=== PATIENT | female | born 1945 | race Caucasian/White ===

== ENCOUNTER → 2017-08-24 | Outpatient (CLI) | payer OTHER ==
[~2017-08-24] MED LIST: CITA40TA5 PO; CYCL-259 PO; DIAZ5TAB4 PO; FENTANYL PF 100 MCG/2ML ONE; FLUMAZENIL 0.1 MG/1 ML, 5ML ONE; GADOBUTROL 7.5 MMOL/7.5 ML PFS ONE; LEVO50TA5 PO; LISI-170 PO; MIDAZOLAM 1 MG/ML, 5ML ONE; OXYC5CAP2 PO; SIMV40TA3 PO; TRAZ50TA18 PO
== END | disposition home or self-care (01) ==
LOC: RAD 09:53
PROVIDERS: ATTEND Family Medicine
DX: M47.812 Spondylosis without myelopathy or radiculopathy, cervical region (principal)
CPT/HCPCS: 72050; 72156; 99156; 99157; A9585; J2250; J3010

== ENCOUNTER 2018-01-08 15:32 | Emergency (ER) | payer OTHER ==
[~2018-01-08] VITALS: Ht 162.6 cm; Wt 50.0 kg
[~2018-01-08 15:32] MED LIST changes: -FENTANYL PF 100 MCG/2ML ONE; -FLUMAZENIL 0.1 MG/1 ML, 5ML ONE; -GADOBUTROL 7.5 MMOL/7.5 ML PFS ONE; -MIDAZOLAM 1 MG/ML, 5ML ONE; +TRAZ-136 PO; -TRAZ50TA18 PO
[2018-01-08] MEDS ORDERED: ONDANSETRON 2MG/ML, 2ML ONE (17:28)
[2018-01-08] MEDS ORDERED: ONDANSETRON 2MG/ML, 2ML IVPush ONE (17:30)
[2018-01-08] MEDS ORDERED: SODIUM CHLORIDE 0.9% 1,000ML IVBOLUS ONE (17:30)
[2018-01-08] MEDS ORDERED: SODIUM CHLORIDE FLUSH 10ML SYR IVF ONE (17:30)
[2018-01-08 17:44] LABS: BASOPHILS # (AUTO) 0.02 x10^3/uL (0-0.1); BASOPHILS % (AUTO) 0 % (0-1); EOSINOPHILS # (AUTO) 0.19 x10^3/uL (0-0.4); EOSINOPHILS % (AUTO) 3 % (1-7); LYMPHOCYTES # (AUTO) 2.75 x10^3/uL (1-3.4); LYMPHOCYTES % (AUTO) 50 % (22-44); MD NO; MEAN CORPUSCULAR HGB CONC 32.9 g/dL (32.4-35.8); MEAN CORPUSCULAR VOLUME 97.2 fL (80-100); MEAN PLATELET VOLUME 7.9 fL (7.4-10.4); MONOCYTES # (AUTO) 0.42 x10^3/uL (0.2-0.8); MONOCYTES % (AUTO) 8 % (2-9); NEUTROPHILS # (AUTO) 2.17 x10^3/uL (1.8-6.8); NEUTROPHILS % (AUTO) 39 % (42-75); PLATELET COUNT 217 x10^3/uL (130-400); RED BLOOD COUNT 4.06 x10^6/uL (3.82-5.3); RED CELL DISTRIBUTION WIDTH 15.3 % (9.6-15.2)
[2018-01-08 17:55] LABS: ALANINE AMINOTRANSFERASE 13 U/L (12-78); ALBUMIN 3.4 g/dL (3.4-5.0); ANION GAP 4 mmol/L (5-15); CHLORIDE 108 mmol/L (98-107); CREATININE 1.22 mg/dL (0.55-1.02)
[2018-01-08 17:59] LABS: ALKALINE PHOSPHATASE 70 U/L (45-117); BILIRUBIN,TOTAL 0.3 mg/dL (0.2-1.0); TOTAL PROTEIN 7.1 g/dL (6.4-8.2); TROPONIN I < 0.015 ng/mL (0.000-0.045)
[2018-01-08 19:03] VITALS: BP 131/77
[2018-01-08 19:08] LABS: MICROSCOPIC INDICATED
[2018-01-08 19:11] LABS: CULTURE INDICATED? YES
== END 2018-01-08 20:01 | disposition home or self-care (01) ==
LOC: ED 18:50
DX: N39.0 Urinary tract infection, site not specified (principal); R11.0 Nausea; Z87.891 Personal history of nicotine dependence; R51 Headache
CPT/HCPCS: 36415; 70450; 71045; 80053; 81001; 84484; 85025; 87086; 93005; 96374; 99285; J2405; J7030

== ENCOUNTER 2018-01-14 11:38 | Observation (INO) | payer OTHER ==
[~2018-01-14] VITALS: Ht 162.6 cm; Wt 56.0 kg
[~2018-01-14 11:38] MED LIST changes: -TRAZ-136 PO; +TRAZ50TA66 PO
[2018-01-14] MEDS ORDERED: SODIUM CHLORIDE 0.9% 1,000ML IVBOLUS ONE (12:30)
[2018-01-14] MEDS ORDERED: ONDANSETRON 2MG/ML, 2ML IVPush ONE (12:30)
[2018-01-14] MEDS ORDERED: SODIUM CHLORIDE FLUSH 10ML SYR IVF ONE (12:30)
[2018-01-14 13:03] LABS: ALANINE AMINOTRANSFERASE 14 U/L (12-78); ALBUMIN 3.5 g/dL (3.4-5.0); ANION GAP 4 mmol/L (5-15); CALCIUM 8.8 mg/dL (8.5-10.1); CHLORIDE 107 mmol/L (98-107); CREATININE 1.29 mg/dL (0.55-1.02)
[2018-01-14 13:04] LABS: MD YES; MEAN CORPUSCULAR HEMOGLOBIN 32.3 pg (27.0-34.8); MEAN CORPUSCULAR HGB CONC 33.5 g/dL (32.4-35.8); MEAN CORPUSCULAR VOLUME 96.3 fL (80-100); MEAN PLATELET VOLUME 7.7 fL (7.4-10.4); PLATELET COUNT 224 x10^3/uL (130-400); RED BLOOD COUNT 4.24 x10^6/uL (3.82-5.3); RED CELL DISTRIBUTION WIDTH 15.4 % (9.6-15.2)
[2018-01-14 13:05] LABS: ALKALINE PHOSPHATASE 68 U/L (45-117); BILIRUBIN,TOTAL 0.3 mg/dL (0.2-1.0); TOTAL PROTEIN 7.3 g/dL (6.4-8.2)
[2018-01-14 13:25] LABS: <PLATELET ESTIMATE> ADEQUATE; <PLT MORPHOLOGY> NORMAL PLT MORPH; <RBC MORPHOLOGY> NORMAL; EOS#(MANUAL) 0.04 x10^3/uL (0.0-0.4); EOS% (MANUAL) 1 % (1-7); LYMPH#(MANUAL) 1.91 x10^3/uL (1-3.4); LYMPHS% (MANUAL) 49 % (22-44); MONOS#(MANUAL) 0.16 x10^3/uL (0.3-2.7); MONOS% (MANUAL) 4 % (2-9); SEG#(MANUAL) 1.79 x10^3/uL (1.8-6.8); SEGS% (MANUAL) 46 % (42-75)
[2018-01-14] MEDS ORDERED: ONDANSETRON 2MG/ML, 2ML ONE (13:44)
[2018-01-14 14:17] LABS: CULTURE INDICATED? NO; MICROSCOPIC NOT IND
[2018-01-14] MEDS ORDERED: OMNIPAQUE 350 MG/ML, 100ML BOTTLE ONE (15:10)
[2018-01-14] MEDS ORDERED: SODIUM CHLORIDE 0.9% 1,000 ML IV ONE (16:37)
[2018-01-14] MEDS ORDERED: ONDANSETRON 2MG/ML, 2ML IVPush PRN (17:30)
[2018-01-14] MEDS ORDERED: BISACODYL 10 MG SUPP PR PRN (17:30)
[2018-01-14] MEDS ORDERED: hydrALAzine 20 MG/ML, 1ML IVPush PRN (17:30)
[2018-01-14] MEDS ORDERED: ACETAMINOPHEN 325 MG TABLET PO PRN (17:30)
[2018-01-14] MEDS ORDERED: POLYETHYLENE GLYCOL 17 GM PACKET PO PRN (17:30)
[2018-01-14] MEDS ORDERED: DOCUSATE 100 MG CAPSULE PO PRN (17:30)
[2018-01-14] MEDS ORDERED: KETOROLAC 30 MG/1 ML IV PRN (17:30)
[2018-01-14] MEDS ORDERED: OXYcodone IR 5MG TABLET PO PRN (17:30)
[2018-01-14] MEDS: SODIUM CHLORIDE 0.9% 1,000 ML IV SCH (18:03)
[2018-01-14] MEDS: HEPARIN 5,000 UNITS/ML, 1ML SQ SCH (18:03)
[2018-01-14 18:18] VITALS: BP 103/69
[2018-01-14 19:14] VITALS: BP 109/66
[2018-01-14 19:14] LABS: RAPID INFLUENZA A Negative (Negative); RAPID INFLUENZA B Negative (Negative)
[2018-01-14] MEDS: TRAZODONE 50MG TABLET PO SCH (20:29)
[2018-01-14] MEDS: CYCLOBENZAPRINE 10 MG TABLET PO SCH (20:29)
[2018-01-15 00:07] VITALS: BP 129/76
[2018-01-15] MEDS: HEPARIN 5,000 UNITS/ML, 1ML SQ SCH ×3 (01:30→16:56)
[2018-01-15] MEDS: SODIUM CHLORIDE 0.9% 1,000 ML IV SCH (02:31)
[2018-01-15 05:06] LABS: MEAN CORPUSCULAR HEMOGLOBIN 32.4 pg (27.0-34.8); MEAN CORPUSCULAR HGB CONC 33.3 g/dL (32.4-35.8); MEAN CORPUSCULAR VOLUME 97.3 fL (80-100); MEAN PLATELET VOLUME 7.9 fL (7.4-10.4); PLATELET COUNT 177 x10^3/uL (130-400); RED CELL DISTRIBUTION WIDTH 15.4 % (9.6-15.2)
[2018-01-15 05:09] LABS: ANION GAP 5 mmol/L (5-15); CALCIUM 7.9 mg/dL (8.5-10.1); CHLORIDE 113 mmol/L (98-107); CREATININE 1.15 mg/dL (0.55-1.02)
[2018-01-15 05:45] LABS: BASOPHILS # (AUTO) 0.01 x10^3/uL (0-0.1); BASOPHILS % (AUTO) 0 % (0-1); EOSINOPHILS # (AUTO) 0.11 x10^3/uL (0-0.4); EOSINOPHILS % (AUTO) 3 % (1-7); LYMPHOCYTES # (AUTO) 2.05 x10^3/uL (1-3.4); LYMPHOCYTES % (AUTO) 56 % (22-44); MD SCAN; MONOCYTES # (AUTO) 0.35 x10^3/uL (0.2-0.8); MONOCYTES % (AUTO) 10 % (2-9); NEUTROPHILS # (AUTO) 1.13 x10^3/uL (1.8-6.8); NEUTROPHILS % (AUTO) 31 % (42-75)
[2018-01-15] MEDS: LEVOTHYROXINE 50 MCG TABLET PO SCH (06:00)
[2018-01-15 07:32] VITALS: BP 128/68
[2018-01-15 07:48] VITALS: BP 134/61
[2018-01-15] MEDS: CITALOPRAM 20 MG TABLET PO SCH (09:48)
[2018-01-15] MEDS: CYCLOBENZAPRINE 10 MG TABLET PO SCH (09:48)
[2018-01-15] MEDS: LISINOPRIL 20 MG TABLET PO SCH (09:48)
[2018-01-15] MEDS: SIMVASTATIN 40 MG TABLET PO SCH (09:48)
[2018-01-15 13:30] VITALS: BP 134/89
[2018-01-15] MEDS: CYCLOBENZAPRINE 10 MG TABLET PO PRN (16:57)
[2018-01-15 19:49] VITALS: BP 108/60
[2018-01-15] MEDS: TRAZODONE 50MG TABLET PO SCH (20:52)
[2018-01-16] MEDS: CYCLOBENZAPRINE 10 MG TABLET PO PRN (00:48)
[2018-01-16] MEDS: HEPARIN 5,000 UNITS/ML, 1ML SQ SCH ×2 (00:48→08:47)
[2018-01-16 01:45] VITALS: BP 116/51
[2018-01-16] MEDS: LEVOTHYROXINE 50 MCG TABLET PO SCH (05:13)
[2018-01-16 06:10] LABS: CHLORIDE 114 mmol/L (98-107)
[2018-01-16 06:22] LABS: ANION GAP 9 mmol/L (5-15); CREATININE 1.07 mg/dL (0.55-1.02)
[2018-01-16 07:43] VITALS: BP 125/65
[2018-01-16] MEDS: CITALOPRAM 20 MG TABLET PO SCH (08:46)
[2018-01-16] MEDS: LISINOPRIL 20 MG TABLET PO SCH (08:46)
[2018-01-16] MEDS: SIMVASTATIN 40 MG TABLET PO SCH (08:47)
== END 2018-01-16 10:33 | disposition home or self-care (01) ==
LOC: ED 13:50 → INTOOBSV 16:35 → EDIP 16:35 → 3NE 17:34 → 3NW 01-15 07:35 → DCLOUNGE 01-16 10:15
PROVIDERS: ADMIT Internal Medicine; ATTEND Internal Medicine
DX: R11.2 Nausea with vomiting, unspecified (principal); N17.0 Acute kidney failure with tubular necrosis; M79.10 Myalgia, unspecified site; R51 Headache; I11.0 Hypertensive heart disease with heart failure; E03.9 Hypothyroidism, unspecified; N28.1 Cyst of kidney, acquired; Z85.3 Personal history of malignant neoplasm of breast; Z85.21 Personal history of malignant neoplasm of larynx; Z87.891 Personal history of nicotine dependence; Z79.899 Other long term (current) drug therapy; Z90.10 Acquired absence of unspecified breast and nipple
CPT/HCPCS: 36415; 74177; 80048; 80053; 81003; 83690; 84443; 85025; 87400; 93005; 96361; 96372; 96374; 96376; 99285; G0378; J1644; J2405; J7030; Q9967

== ENCOUNTER 2020-04-28 08:27 | Emergency (ER) | payer MEDICARE, OTHER ==
[~2020-04-28] VITALS: Ht 162.6 cm; Wt 51.8 kg
[~2020-04-28 08:27] MED LIST changes: -CYCL-259 PO; +CYCL10TA2 PO; +SIMV40TA20 PO; -SIMV40TA3 PO
--- NOTE | 2020-04-28 08:44 | NUR ---
Pt ambulatory to room with laboratory technician, changing into gown at this time.
--- NOTE | 2020-04-28 08:55 | NUR ---
trade promotion analyst completed, warm blanket provided and call light in reach. Awaiting MD exam and orders.
--- NOTE | 2020-04-28 09:12 | NUR ---
Pt waiting for MD exam/orders. Denies need for anything else at this time.
[2020-04-28] MEDS ORDERED: HYDROcodone/APAP 5/325 TABLET PO ONE (09:30)
[2020-04-28] MEDS ORDERED: HYDROcodone/APAP 5/325 TABLET ONE (09:33)
--- NOTE | 2020-04-28 09:38 | NUR ---
Pt given pain medication PO at this time as ordered. Aware of wait for xrays.
--- NOTE | 2020-04-28 10:10 | NUR ---
Pt back from xray without acute change while off unit.
--- NOTE | 2020-04-28 10:35 | NUR ---
Pt states no pain relief after clinical medical assistant and remains 10/21. aware
[2020-04-28] MEDS ORDERED: DIAZEPAM 5 MG TABLET PO ONE (11:00)
[2020-04-28] MEDS ORDERED: DIAZEPAM 5 MG TABLET ONE (11:12)
--- NOTE | 2020-04-28 11:19 | NUR ---
Pt medicated as ordered for continued pain.
[2020-04-28] MEDS ORDERED: SODIUM CHLORIDE FLUSH 10ML SYR IVF ONE (11:30)
[2020-04-28 11:46] LABS: BASOPHILS % (AUTO) 0 % (0-1); EOSINOPHILS % (AUTO) 2 % (1-7); LYMPHOCYTES % (AUTO) 46 % (22-44); MEAN CORPUSCULAR HEMOGLOBIN 30.3 pg (27.0-34.8); MEAN CORPUSCULAR HGB CONC 33.1 g/dL (32.4-35.8); MONOCYTES % (AUTO) 10 % (2-9); NEUTROPHILS % (AUTO) 42 % (42-75); PLATELET COUNT 216 x10^3/uL (130-400); RED BLOOD COUNT 4.07 x10^6/uL (3.82-5.3); RED CELL DISTRIBUTION WIDTH 13.9 % (9.6-15.2)
[2020-04-28 11:47] LABS: MD NO
[2020-04-28 11:54] LABS: ALBUMIN 3.5 g/dL (3.4-5.0); ANION GAP 5 mmol/L (5-15); CALCIUM 8.7 mg/dL (8.5-10.1); CHLORIDE 111 mmol/L (98-107); CREATININE 1.17 mg/dL (0.55-1.02)
--- NOTE | 2020-04-28 12:22 | NUR ---
Pain reassessed with some decreased since last intermediate frame tender per pt report. Pt states pain is down to 6/10 from 8/10. Still waiting to go to CT at this time. Pt denies needs.
[2020-04-28] MEDS ORDERED: OMNIPAQUE 350 MG/ML, 75ML BOTTLE ONE (12:46)
--- NOTE | 2020-04-28 13:28 | NUR ---
CTA results reviewed and chart marked for recheck by MD now.
[2020-04-28 14:15] LABS: TROPONIN I < 0.015 ng/mL (0.000-0.045)
--- NOTE | 2020-04-28 14:24 | NUR ---
Lunch tray arrived and brought into room. Set up assistance provided and decaf coffee with creamer brought to bedside per pt request. VS reassessed and pain remains 7/10 at this time. Pt aware of waiting for bed assignment.
--- NOTE | 2020-04-28 14:50 | NUR ---
Report given to SALMA Stephens and pt readied for transport to floor.
--- NOTE | 2020-04-28 15:05 | NUR ---
Transfer on hold secondary to insurance concerns. Admission MD is having case managment try to schedule an outpatient biopsy instead with possibility of d/c to home today with prescriptions for pain control. Pt aware of changes.
[2020-04-28 16:18] VITALS: BP 123/60
== END 2020-04-28 16:20 | disposition home or self-care (01) ==
LOC: ED 10:09 → UNDOADMIN 14:42 → EDIP 14:42 → ED 16:20
DX: M51.14 Intervertebral disc disorders with radiculopathy, thoracic region (principal); R91.8 Other nonspecific abnormal finding of lung field; R00.1 Bradycardia, unspecified; I10 Essential (primary) hypertension; Z87.891 Personal history of nicotine dependence
CPT/HCPCS: 36415; 71045; 71275; 72125; 72128; 80048; 82040; 84484; 85025; 93005; 99285; Q9967

== ENCOUNTER 2020-05-07 05:53 | Day surgery (SDC) | payer MEDICARE ==
[~2020-05-07] VITALS: Ht 162.6 cm; Wt 50.0 kg
[2020-05-07 06:55] VITALS: BP 138/77
[2020-05-07] MEDS ORDERED: SODIUM CHLORIDE 0.9% 1,000 ML IV SCH (07:00)
[2020-05-07] MEDS ORDERED: MIDAZOLAM 1 MG/ML, 5ML ONE (08:04)
[2020-05-07] MEDS ORDERED: FENTANYL PF 100 MCG/2ML ONE (08:04)
[2020-05-07] MEDS ORDERED: FLUMAZENIL 0.1 MG/1 ML, 5ML ONE (08:04)
[2020-05-07] MEDS ORDERED: NALOXONE 1 MG/ML, 2ML ONE (08:05)
[2020-05-07] MEDS ORDERED: HYDROcodone/APAP 5/325 TABLET PO ONE (12:00)
[2020-05-07] MEDS ORDERED: HYDROcodone/APAP 5/325 TABLET ONE (12:02)
== END 2020-05-07 14:02 | disposition home or self-care (01) ==
LOC: OUT 05:53
PROVIDERS: ATTEND Nurse Practitioner
DX: R91.1 Solitary pulmonary nodule (principal); C34.32 Malignant neoplasm of lower lobe, left bronchus or lung; I10 Essential (primary) hypertension; Z87.891 Personal history of nicotine dependence
CPT/HCPCS: 32408; 71045; 88305; 88333; 99156; 99157; J2250; J3010; J7030; 77012; J2310

== ENCOUNTER → 2020-07-17 | Outpatient (CLI) | payer MEDICARE ==
[~2020-07-17] MED LIST changes: +ACET650S21 PO; +ALEN70TA77 PO; +AMLO5TAB4 PO; +ATOR20TA37 PO; +CHOL100012 PEG; +IRON1TAB60 PO; +LEVO75TA5 PO; +LISI40TA9 PO
[2020-07-17 09:14] LABS: BASOPHILS % (AUTO) 1 % (0-1); EOSINOPHILS % (AUTO) 3 % (1-7); LYMPHOCYTES % (AUTO) 44 % (22-44); MEAN CORPUSCULAR HGB CONC 33.1 g/dL (32.4-35.8); MEAN PLATELET VOLUME 7.8 fL (7.4-10.4); MONOCYTES % (AUTO) 8 % (2-9); NEUTROPHILS % (AUTO) 45 % (42-75); PLATELET COUNT 254 x10^3/uL (130-400); RED BLOOD COUNT 4.24 x10^6/uL (3.82-5.3); RED CELL DISTRIBUTION WIDTH 13.7 % (9.6-15.2)
[2020-07-17 09:16] LABS: MD NO
[2020-07-17 09:23] LABS: ALANINE AMINOTRANSFERASE 17 U/L (12-78); ALBUMIN 3.8 g/dL (3.4-5.0); ANION GAP 3 mmol/L (5-15); CALCIUM 8.9 mg/dL (8.5-10.1); CHLORIDE 110 mmol/L (98-107); CREATININE 1.29 mg/dL (0.55-1.02)
[2020-07-17 09:25] LABS: ALKALINE PHOSPHATASE 71 U/L (45-117); BILIRUBIN,TOTAL 0.4 mg/dL (0.2-1.0); TOTAL PROTEIN 7.9 g/dL (6.4-8.2)
== END | disposition home or self-care (01) ==
LOC: STAR 08:05
PROVIDERS: ATTEND Thoracic Surgery (Cardiothoracic Vascular Surgery)
DX: Z01.812 Encounter for preprocedural laboratory examination (principal); Z20.822 Contact with and (suspected) exposure to COVID-19
CPT/HCPCS: 36415; 80053; 85025; 93005; U0003

== ENCOUNTER 2020-11-26 09:20 | Outpatient (CLI) | payer MEDICARE ==
[~2020-11-26 09:20] MED LIST changes: +HYDR-2214 PO
[2020-12-08] MEDS ORDERED: ALPR1TAB2 PO (13:45)
[2020-12-10] MEDS ORDERED: ALPR1TAB2 PO (09:40)
== END 2020-11-26 23:59 | disposition home or self-care (01) ==
LOC: CFH 09:20
PROVIDERS: ATTEND Physician Assistant Surgical
DX: M48.02 Spinal stenosis, cervical region (principal); M54.2 Cervicalgia; R26.89 Other abnormalities of gait and mobility
CPT/HCPCS: 72125